=== PATIENT | female | born 2000 | race Caucasian/White ===

== ENCOUNTER 2021-06-05 12:39 | Emergency (ER) | payer OTHER ==
[~2021-06-05] VITALS: Ht 162.6 cm; Wt 60.8 kg
[2021-06-05] MEDS ORDERED: FOLIC ACID0.8 M1 PO (13:17)
[2021-06-05] MEDS ORDERED: PRENA1 TRUE CO1 EACH PO (13:17)
[2021-06-05] MEDS ORDERED: MACROBID 100 M100 MG PO (15:22)
== END 2021-06-05 15:41 | disposition home or self-care (01) ==
LOC: ER 12:39
DX: O20.0 Threatened abortion (principal); O23.91 Unspecified genitourinary tract infection in pregnancy, first trimester; Z3A.09 9 weeks gestation of pregnancy

== ENCOUNTER 2021-08-28 16:49 | Outpatient (CLI) | payer OTHER ==
[~2021-08-28 16:49] MED LIST: FOLIC ACID0.8 M1 PO; MACROBID 100 M100 MG PO; PRENA1 TRUE CO1 EACH PO
== END 2021-08-29 17:04 | disposition home or self-care (01) ==
LOC: OBS/DEL 16:49
PROVIDERS: ATTEND Obstetrics & Gynecology
DX: O23.592 Infection of other part of genital tract in pregnancy, second trimester (principal); Z3A.22 22 weeks gestation of pregnancy

== ENCOUNTER 2021-09-17 14:28 | Outpatient (CLI) | payer OTHER | END 2021-09-18 10:37 | disposition home or self-care (01) | LOC: OBS/DEL 14:28 | PROVIDERS: ATTEND Obstetrics & Gynecology | DX: O26.892 Other specified pregnancy related conditions, second trimester (principal); Z3A.20 20 weeks gestation of pregnancy; R42 Dizziness and giddiness; Z20.822 Contact with and (suspected) exposure to COVID-19 ==

== ENCOUNTER 2021-12-31 09:11 | Inpatient (IN) | payer OTHER ==
[~2021-12-31] VITALS: Ht 152.4 cm; Wt 68.0 kg
[2021-12-31] MEDS ORDERED: IRON325 MG PO (09:44)
[2021-12-31] MEDS ORDERED: VALTREX1000 MG PO (09:44)
== END 2022-01-02 11:02 | disposition home or self-care (01) | DRG 807 ==
LOC: LDR 09:11 → OB/GYN 14:01
PROVIDERS: ADMIT Obstetrics & Gynecology; ATTEND Obstetrics & Gynecology
PROC: 10E0XZZ Delivery of Products of Conception, External Approach (ICD-10-PCS; principal; 2021-12-31)
PROC: 4A1HXCZ Monitoring of Products of Conception, Cardiac Rate, External Approach (ICD-10-PCS; 2021-12-31)
DX: O80 Encounter for full-term uncomplicated delivery (principal); Z37.0 Single live birth; Z3A.38 38 weeks gestation of pregnancy; Z20.822 Contact with and (suspected) exposure to COVID-19